=== PATIENT | female | born 1965 | race Caucasian/White ===

== ENCOUNTER 2019-02-15 14:45 | Emergency (ER) | payer OTHER ==
[~2019-02-15] VITALS: Ht 149.9 cm; Wt 69.9 kg
[2019-02-15 15:25] VITALS: Ht 149.9 cm; Wt 69.9 kg
[2019-02-15 16:51] LABS: UA SPECIFIC GRAVITY <=1.005 (1.005-1.035); microscopic required? YES; urine erythrocyte NEGATIVE (NEGATIVE)
[2019-02-15 17:54] VITALS: BP 175/86
== END 2019-02-15 17:54 | disposition home or self-care (01) ==
LOC: ED 14:45
PROVIDERS: Emergency Medicine
DX: M54.32 Sciatica, left side (principal); E11.65 Type 2 diabetes mellitus with hyperglycemia; I10 Essential (primary) hypertension; Z90.49 Acquired absence of other specified parts of digestive tract; Z98.890 Other specified postprocedural states; W01.0XXA Fall on same level from slipping, tripping and stumbling without subsequent striking against object, initial encounter; Y93.E5 Activity, floor mopping and cleaning; Y92.89 Other specified places as the place of occurrence of the external cause; Y99.8 Other external cause status
CPT/HCPCS: 82962; J1885; Q0092

== ENCOUNTER 2019-03-10 18:18 | Emergency (ER) | payer OTHER ==
[~2019-03-10] VITALS: Ht 149.9 cm; Wt 68.9 kg
[2019-03-10 18:25] VITALS: Ht 149.9 cm; Wt 68.9 kg
[2019-03-10 21:28] VITALS: BP 150/68
== END 2019-03-10 21:28 | disposition home or self-care (01) ==
LOC: ED 18:18
DX: S00.01XA Abrasion of scalp, initial encounter (principal); I10 Essential (primary) hypertension; E11.9 Type 2 diabetes mellitus without complications; W01.0XXA Fall on same level from slipping, tripping and stumbling without subsequent striking against object, initial encounter; Y93.89 Activity, other specified; Y92.89 Other specified places as the place of occurrence of the external cause; Y99.8 Other external cause status
CPT/HCPCS: 90715

== ENCOUNTER 2019-09-15 12:10 | Emergency (ER) | payer OTHER ==
[~2019-09-15] VITALS: Ht 149.9 cm; Wt 69.4 kg
[2019-09-15 12:35] VITALS: BP 197/65; Ht 149.9 cm; Wt 69.4 kg
== END 2019-09-15 14:22 | disposition home or self-care (01) ==
LOC: ED 12:10
DX: S79.811A Other specified injuries of right hip, initial encounter (principal); I10 Essential (primary) hypertension; E11.9 Type 2 diabetes mellitus without complications; W17.89XA Other fall from one level to another, initial encounter; Y93.89 Activity, other specified; Y92.89 Other specified places as the place of occurrence of the external cause; Y99.8 Other external cause status
CPT/HCPCS: Q0092